=== PATIENT | male | born 1985 ===

== ENCOUNTER 2020-03-09 16:27 | Emergency (ER) | payer SELFPAY ==
[~2020-03-09] VITALS: Ht 167.6 cm; Wt 79.4 kg
[2020-03-09] MEDS ORDERED: OLAN10 PO (16:43)
== END 2020-03-09 16:46 | disposition home or self-care (01) ==
LOC: ER 16:27
DX: F20.9 Schizophrenia, unspecified (principal); Z76.0 Encounter for issue of repeat prescription
CPT/HCPCS: 99281